=== PATIENT | female | born 1975 | race Caucasian/White ===

== ENCOUNTER 2016-05-21 10:51 | Emergency (ER) | payer BC ==
[2016-05-21 11:09] VITALS: BP 124/71
--- NOTE | 2016-05-21 12:03 | UC ---
FLU HPI - HPI Summary HPI Summary: FEVER, BODYACHES, HEADACHE, SORE THROAT SINCE 05/19/16. - History of Current Complaint Chief Complaint: UCGeneralIllness Stated Complaint: FEVER SORE THROAT HEADACHE CONGESTION Time Seen by Provider: 05/21/16 11:13 Hx Obtained From: Patient Hx Last Menstrual Period: IUD Onset/Duration: Sudden Onset, Lasting Days, Still Present Severity Currently: Moderate Severity Initially: Moderate Pain Intensity: 6 Pain Scale Used: 0-10 Numeric Associated Signs & Symptoms: Positive: F/C, Myalgia, Cough, Sore Throat, Headache Related Hx: Possible Flu/Infectious Exposure - Allergy/Home Medications Allergies/Adverse Reactions: Allergies Allergy/AdvReac Type Severity Reaction Status Date / Time Metronidazole [From Flagyl] Allergy Severe Hives Verified 05/21/16 11:09 Home Medications: Home Medications Dextromethorphan-Phenylephrine [Vicks Dayquil Cold & Flu 10-5-325 mg/15Ml] 30 ml PO Q6HR PRN 05/21/16 [History Confirmed 05/21/16] Ibuprofen [Advil] 800 mg PO Q8HR PRN 05/21/16 [History Confirmed 05/21/16] PMH/Surg Hx/FS Hx/Imm Hx Previously Healthy: Yes - Surgical History Surgical History: Yes Surgery Procedure, Year, and Place: tonsilectomy. R/L knee ACL and meniscal tear. - Family History Known Family History: Negative: Respiratory Disease - Social History Occupation: Employed Full-time Lives: With Family Alcohol Use: Occasionally Substance Use Type: None Smoking Status (MU): Never Smoked Tobacco - Immunization History Most Recent Influenza Vaccination: Not UTD Review of Systems Constitutional: Fever, Chills, Fatigue Skin: Negative Eyes: Negative ENT: Sore Throat Respiratory: Cough Cardiovascular: Negative Gastrointestinal: Negative Genitourinary: Negative Motor: Negative Neurovascular: Negative Musculoskeletal: Myalgia Neurological: Negative Psychological: Negative All Other Systems Reviewed And Are Negative: Yes Physical Exam Triage Information Reviewed: Yes Appearance: Ill-Appearing - MILD Vital Signs: Initial Vital Signs Temp 99.3 F 05/21/16 11:04 Pulse 76 05/21/16 11:04 Resp 18 05/21/16 11:04 BP 124/71 05/21/16 11:04 Pulse Ox 100 05/21/16 11:04 Vital Signs Reviewed: Yes Eye Exam: Normal ENT Exam: Normal ENT: Positive: Normal ENT inspection, Hearing grossly normal, Pharynx normal, TMs normal Dental Exam: Normal Neck exam: Normal Respiratory Exam: Normal Respiratory: Positive: Chest non-tender, Lungs clear, Normal breath sounds, No respiratory distress, No accessory muscle use Cardiovascular Exam: Normal Cardiovascular: Positive: RRR, No Murmur, Pulses Normal Abdominal Exam: Normal Abdomen Description: Positive: Nontender, No Organomegaly Musculoskeletal Exam: Normal Neurological Exam: Normal Psychological Exam: Normal Skin Exam: Normal Flu Course/Dx - Differential Dx/Diagnosis Differential Diagnosis/HQI/PQRI: Influenza, Upper Respiratory Infection Provider Diagnoses: INFLUENZA B Discharge - Discharge Plan Condition: Stable Disposition: HOME Prescriptions: Oseltamivir CAP* [Tamiflu CAP*] 75 mg PO BID #10 cap Patient Education Materials: Influenza (ED) Forms: *Work Release Referrals: Javier Macdonald MD [Primary Care Provider] -
== END 2016-05-21 11:58 | disposition home or self-care (01) ==
LOC: UCCORT 10:51
DX: J11.1 Influenza due to unidentified influenza virus with other respiratory manifestations (principal); Z88.1 Allergy status to other antibiotic agents
CPT/HCPCS: 87502; 99212; G0463

== ENCOUNTER 2016-07-28 18:23 | Emergency (ER) | payer BC ==
[2016-07-28 18:41] VITALS: BP 109/64
--- NOTE | 2016-07-28 18:53 | UC ---
Abdominal Pain Female HPI - HPI Summary HPI Summary: 40 yo female awoke with abd pain about 4 AM pain waxes and wanes at times it doubles her over fever chills nausea and vomiting (x1) anorexic no solids very little liquids a few weeks ago had old IUD removed and new one inserted Uterine sound and insertion were bought very painful no vag d/c or itch no UTI symptoms - History of Current Complaint Chief Complaint: UCGI Stated Complaint: FEVER/STOMACH ACHE/CALDWELL Time Seen by Provider: 07/28/16 18:45 Hx Last Menstrual Period: 07/09/16 Onset/Duration: Gradual Onset, Lasting Hours Timing: Constant Severity Initially: Moderate Severity Currently: Mild Pain Intensity: 4 Pain Scale Used: 0-10 Numeric Location: Suprapubic Radiates: No Character: Colicy, Cramping Aggravating Factor(s): Nothing Alleviating Factor(s): Nothing Associated Signs and Symptoms: Positive: Fever, Decreased Appetite, Nausea, Vomiting - Risk Factors Ectopic Risk Factor: IUD Use Allergies/Adverse Reactions: Allergies Allergy/AdvReac Type Severity Reaction Status Date / Time Metronidazole [From Flagyl] Allergy Severe Hives Verified 07/28/16 18:41 Home Medications: Home Medications Naproxen Sodium-Diphenhydramin [Aleve PM 220-25 mg] 2 tab PO PRN 07/28/16 [ History] PMH/Surg Hx/FS Hx/Imm Hx Previously Healthy: Yes - Surgical History Surgical History: Yes Surgery Procedure, Year, and Place: tonsilectomy. R/L knee ACL and meniscal tear. - Family History Known Family History: Negative: Cardiac Disease, Hypertension, Diabetes, Respiratory Disease - Social History Alcohol Use: Occasionally Substance Use Type: None Smoking Status (MU): Never Smoked Tobacco - Immunization History Most Recent Influenza Vaccination: Not UTD Review of Systems Constitutional: Fever, Chills Skin: Negative Eyes: Negative ENT: Negative Respiratory: Negative Cardiovascular: Negative Gastrointestinal: Abdominal Pain, Vomiting, Nausea Genitourinary: Negative Motor: Negative Neurovascular: Negative Musculoskeletal: Negative Neurological: Negative Psychological: Negative All Other Systems Reviewed And Are Negative: Yes Physical Exam Triage Information Reviewed: Yes Appearance: Well-Appearing, No Pain Distress, Well-Nourished Vital Signs: Initial Vital Signs Temp 100.6 F 07/28/16 18:32 Pulse 88 07/28/16 18:32 Resp 14 07/28/16 18:32 BP 109/64 07/28/16 18:32 Pulse Ox 100 07/28/16 18:32 Eye Exam: Normal ENT: Positive: Hearing grossly normal, Pharynx normal, Pharyngeal erythema Neck: Positive: Supple, Nontender Respiratory: Positive: Lungs clear, Normal breath sounds, No respiratory distress, No accessory muscle use Cardiovascular: Positive: RRR, No Murmur Abdomen Description: Positive: No Organomegaly, Soft. Negative: Nontender, CVA Tenderness (R), CVA Tenderness (L), Distended, Guarding, Hernia @, Hepatomegaly Bowel Sounds: Positive: Present Musculoskeletal: Positive: ROM Intact, No Edema Neurological: Positive: Alert Psychological Exam: Normal Skin Exam: Normal Abd Pain Female Course/Dx - Course Course Of Treatment: ext genitalia-normal. vagina- moderate D/C. cx- IUD string noted, no CMT. uterus-slightly tender. left adenexa tender. d/w Candace Chery MUCK [facility]PERATOR, [facility], pt declines EMS transfer - Differential Dx/Diagnosis Provider Diagnoses: abdominal pain of uncertain cause Discharge - Discharge Plan Condition: Stable Disposition: AGAINST MEDICAL ADVICE Images Front/Back of Body, Lg (Jasper): 1 - tender across lower abd
== END 2016-07-28 19:25 | disposition left against medical advice (07) ==
LOC: UCCORT 18:23
DX: R10.30 Lower abdominal pain, unspecified (principal); R50.9 Fever, unspecified; R11.2 Nausea with vomiting, unspecified; Z88.1 Allergy status to other antibiotic agents; Z32.02 Encounter for pregnancy test, result negative
CPT/HCPCS: 81003; 84702; 87480; 87491; 87510; 87591; 87661; 99213; G0463

== ENCOUNTER 2017-12-15 07:47 | Day surgery (SDC) | payer BC ==
[~2017-12-15 07:47] MED LIST: Buffered Lidocaine 0.9% SYRIN* 5 ML/SYR SYRINGE INTRADERM ONE; Dexamethasone TAB* 4 MG PO ONE; Famotidine IV* 10 MG/ML 2 ML (20 mg) IV ONE
[2017-12-15] MEDS ORDERED: Dexamethasone TAB* 4 MG ONE (08:07)
[2017-12-15] MEDS ORDERED: Famotidine IV* 10 MG/ML 2 ML (20 mg) ONE (08:07)
[2017-12-15] MEDS ORDERED: fentaNYL* 50 MCG/ML 2 ML VIAL (100 MCG VIAL) ONE (08:38)
[2017-12-15] MEDS ORDERED: Bupivacaine 0.25% SDV* 30 ML ONE (09:05)
[2017-12-15] MEDS ORDERED: Naloxone* 0.4 MG/ML 1 ML VIAL IV PRN (09:14)
[2017-12-15] MEDS ORDERED: Lidocaine 2% PF * 5 ML VIAL ONE (09:20)
[2017-12-15] MEDS ORDERED: Propofol* 10 MG/ML 20 ML BTL IV PUSH ONE (09:20)
[2017-12-15 10:05] VITALS: BP 119/66
--- NOTE | 2017-12-16 03:33 | OP ---
DATE OF OPERATION: 12/15/17 - [facility] DATE OF : 71 SURGEON: Stephan Bobby MD OCCUPATIONAL HEALTH COORDINATOR: OLIMPIA Fuentes ANESTHESIOLOGIST: Dr. Hoffman. ANESTHESIA: Local MAC. PRE-OP DIAGNOSIS: Right palm mass. POST-OP DIAGNOSIS: Right palm mass. OPERATIVE PROCEDURE: Excision of right palm soft tissue mass. INDICATIONS: Glenda is 42. She has a mass in line with the 4th ray in the palm. Near the distal palmar crease. We had talked about risks and benefits. It is bothering her. She wanted it excised. ESTIMATED BLOOD LOSS: 2 mL. COMPLICATIONS: None. FINDINGS: See above and below. DESCRIPTION OF PROCEDURE: Glenda was seen in the preoperative holding area. The correct site, side, and procedure were identified. We came back to the operating room and the arm was prepped and draped in the usual fashion. A time- out was performed. The arm was exsanguinated with the Esmarch and the tourniquet inflated to 250 mmHg. I had already anesthetized the operative area with 0.25% Marcaine. I made a V-shaped incision centered over the mass. Dissection carried down and full thickness flaps were raised off of the mass. The mass was emanating just off the proximal aspect of the A1 sussy. There was a large nodule. This was excised with a [place] blade and sent as a specimen. I then released the A1 sussy to try to minimize any chance of the mass recurring. Once everything was nice and clean we irrigated out the wound. The skin was closed with 4-0 nylon suture. A soft dressing was applied and she was taken to the recovery room in stable condition. [id number]/[facility] #: [id number] [facility]
== END 2017-12-15 10:01 | disposition home or self-care (01) ==
LOC: OREAST 07:47
PROVIDERS: ATTEND Orthopaedic Surgery Hand Surgery
DX: M67.441 Ganglion, right hand (principal); M19.90 Unspecified osteoarthritis, unspecified site; J30.89 Other allergic rhinitis
CPT/HCPCS: 81025; 88304; J2704; J3010; J8540

== ENCOUNTER 2018-03-15 15:27 | Emergency (ER) | payer BC ==
--- OUTSIDE RECORDS SUMMARY | 2018-03-15 16:52 | XMS REPORT | Continuity of Care Document ---
:1975 External Reference #:[id number] Author Name Antionette Sterling Care Team Providers Name Role Phone Javier Macdonald MD Primary Care Physician Unavailable Payers Type Date Identification Numbers Payment Provider Subscriber Effective: 2017 Policy Number: [id number] BS Kevin Bach PayID: [id number] [address] [address] [place] [address] Advance Directives Description No Information Available Problems Date Description Provider Status Onset: 12/28/2017 Ganglion of hand Stephan Bobby MD Active Family History Date Family Member(s) Problem(s) Comments General Breast Cancer Father No Current Problems Mother Breast Cancer Social History Type Date Description Comments Sex Unknown Marital Status Lives With Family Occupation Teacher Tobacco Use Start: Unknown Never Smoked Cigarettes Smoking Status Reviewed: 02/23/18 Never Smoked Cigarettes ETOH Use Drinks 1 Alcoholic Beverage Per Week Tobacco Use Start: Unknown Patient has never smoked Recreational Drug Use Denies Drug Use Exercise Type/Frequency Exercises regularly Allergies, Adverse Reactions, Alerts Date Description Reaction Status Severity Comments 08/22/2017 Flagyl Urticaria Active Medications Medication Date Status Form Strength Qnty SIG Indications Ordering Provider Aleve 0 Active Capsules 220mg 1-2 by Unknown 000 mouth twice a day as needed Tramadol HCL Hx Tablets 50mg 30tabs 1-2 Stephan 018 - tablets by MD Kanu mouth 019 every 6 hours as needed pain Medications Administered in Office Medication Date Status Form Strength Qnty SIG Indications Ordering Provider Triamcinolone Injection Bryanna (Kenalog) 2018 JOVITA Styles Immunizations Description No Information Available Vital Signs Date Vital Result Comment 02/23/2018 2:43pm Height 62 inches 5'2" Weight 135.00 lb Heart Rate 76 /min Pain Level 3 O2 % BldC Oximetry 97 % BMI (Body Mass Index) 24.7 kg/m2 02/13/2018 10:12am Height 62 inches 5'2" Weight 140.00 lb Heart Rate 64 /min BP Systolic Sitting 112 mmHg L BP Diastolic Sitting 68 mmHg L Respiratory Rate 12 /min Pain Level 2 BMI (Body Mass Index) 25.6 kg/m2 12/28/2017 8:51am Height 62 inches 5'2" Heart Rate 62 /min BP Systolic Sitting 102 mmHg BP Diastolic Sitting 74 mmHg Body Temperature 97.4 F Pain Level 1 O2 % BldC Oximetry 99 % 11/25/2017 10:47am Height 62 inches 5'2" Weight 138.00 lb BP Systolic Sitting 108 mmHg BP Diastolic Sitting 72 mmHg Respiratory Rate 16 /min Body Temperature 99.0 F Pain Level 0 only hurts with pressure. BMI (Body Mass Index) 25.2 kg/m2 09/23/2017 8:30am Height 62 inches 5'2" Weight 138.00 lb Heart Rate 54 /min BP Systolic Sitting 110 mmHg BP Diastolic Sitting 60 mmHg Respiratory Rate 12 /min Pain Level 3 BMI (Body Mass Index) 25.2 kg/m2 08/22/2017 2:49pm Height 62 inches 5'2" Weight 140.00 lb Heart Rate 76 /min BP Systolic Sitting 116 mmHg BP Diastolic Sitting 74 mmHg Respiratory Rate 12 /min Pain Level 4 BMI (Body Mass Index) 25.6 kg/m2 Results Test Date Facility Test Result H/L Range Note Laboratory test 12/15/2017 [facility] Surgical SEE RESULT 1 , [address] Pathology BELOW [place], [place] [id number] [phone] Xray 09/15/2017 [facility] MRI Upper <pending > [address] [place] [address] [phone] 1 [id number] 2 SEE RESULT BELOW Name: GLENDA BACH : [address]: Stephan Bobby MD Acct: [id number] Unit: [id number] AGE: 42 Location: [facility] Re12/15/17 SEX: F Status: DEP CYNDYC SPEC: [id number] LIAM: 12/15/[address]: Stephan Bobby MD REQ: [id number] RECD: 12/15/17 STATUS: SOUT _ ORDERED: LEVEL 3 COMMENTS: [id number] FINAL DIAGNOSIS Right fourth finger, excision: -- Ganglion cyst. PRE-OPERATIVE DIAGNOSIS Right hand mass GROSS DESCRIPTION The specimen is received in formalin labeled, Right Fourth Finger Tendon Sheath Mass, and consists of a 0.7 x 0.7 x 0.4 cm adhikari-white ovoid rubbery fibrous tissue fragment which is inked, bisected and submitted entirely in one cassette. Signed by and Reported on: Nara Stern MD 12/16/17 1334 END OF REPORT DEPARTMENT OF PATHOLOGY, [address] [place] [address] Kris Hernandez M.D. Director [facility] # [id number] Procedures Date Code Description Status 02/13/2018 89039 Rad Shoulder Comp, Min. 2 Views Completed 12/15/2017 66660 Excision Tendon Sheath Ganglion /Or Joint Capsule Hand Or Completed Finger 12/15/2017 35571 Excision Tendon Sheath Ganglion /Or Joint Capsule Hand Or Completed Finger 08/22/2017 66451 Rad Exam; Hand Comp Completed Encounters Type Date Location Provider Dx Diagnosis Office Visit 02/13/2018 [facility] Scott Fox, M25.311 Other 10:15a [facility] [place] [facility] right shoulder M25.511 Pain in right shoulder Office Visit 09/23/2017 8:30a Orthopedic Stephan R22.31 Local[facility] Bobby MD swelling, mass AT [place] and lump, right upper limb M67.441 Ganglion, right hand Office Visit 08/22/2017 2:45p Orthopedic Scott Fox, D36.12 Mg frazier of [facility] [facility] n[facility] & [place] [facility], upr lmb[facility] inc shldr M79.641 Pain in right hand Plan of Treatment Future Appointment(s):03/23/2018 8:15 am - Jayson Salazar MD at [facility]
[2018-03-15 16:56] VITALS: BP 129/74
[2018-03-15] MEDS ORDERED: Ketorolac INJ* 60 MG/2 ML VIAL IM ONE (17:24)
[2018-03-15] MEDS ORDERED: Acetaminophen TAB* 325 MG PO ONE (17:26)
[2018-03-15] MEDS ORDERED: Ondansetron ODT TAB* 4 MG PO ONE (17:26)
--- NOTE | 2018-03-15 17:27 | UC ---
Headache HPI - HPI Summary HPI Summary: 42-year-old woman comes in with a chief complaint of a headache. Started 2 weeks ago the left mandaeism. Does radiate into the left ear. It's pulsating throbbing. She does have some photophobia and also phonophobia. Patient is a history of migraines and she reports this is the typical location for her migraines and a typical character. Headache is moderate sometimes he gets severe. Was different is the duration of headache. Usually her headache starts beginning her period the last day or 2 at the most. She does have an IUD her last period was in July 2018. No fevers or chills no rhinorrhea. No change in vision or difficulty with speech weakness or numbness or any focal neurologic deficit. The pain does occasionally wake her up in the middle the night which is also typical of her typical migraines. - History Of Current Complaint Chief Complaint: UCHeadache Stated Complaint: HEADACHE Time Seen by Provider: 03/15/18 16:51 Hx Last Menstrual Period: IUD Pain Intensity: 6 - Allergies/Home Medications Allergies/Adverse Reactions: Allergies Allergy/AdvReac Type Severity Reaction Status Date / Time metronidazole [From Flagyl] Allergy Hives Verified 03/15/18 16:53 Home Medications: Home Medications Acetaminophen [Pain Relief] 1,000 mg PO DAILY 03/15/18 [History Confirmed ] Aspirin/Acetaminophen/Caffeine [Excedrin Migraine Geltab] 1 each PO ONCE [History Confirmed 03/15/18] PMH/Surg Hx/FS Hx/Imm Hx Previously Healthy: Yes Neurological History: Migraine - Surgical History Surgical History: Yes Surgery Procedure, Year, and Place: TONSILLECTOMY 1983 [place]. BILATERAL KNEE SCOPINGS (MENISCAL TEAR) 2010, 2011 [place]. Rt HAND - 12/25 - CYST REMOVED - Family History Known Family History: Negative: Cardiac Disease, Hypertension, Diabetes, Respiratory Disease - Social History Alcohol Use: Rare Alcohol Amount: 1 DRINK/MONTH Substance Use Type: None Smoking Status (MU): Never Smoked Tobacco Have You Smoked in the Last Year: No - Immunization History Most Recent Influenza Vaccination: Not UTD Review of Systems All Other Systems Reviewed And Are Negative: Yes Constitutional: Positive: Negative Skin: Positive: Negative Eyes: Positive: Photophobia ENT: Positive: Ear Ache - left, Other - phonophobia Respiratory: Positive: Negative Cardiovascular: Positive: Negative Gastrointestinal: Positive: Negative. Negative: Nausea Motor: Positive: Negative Neurovascular: Positive: Negative Musculoskeletal: Positive: Negative Neurological: Positive: Headache Psychological: Positive: Negative Is Patient Immunocompromised?: No Physical Exam Triage Information Reviewed: Yes Appearance: Well-Appearing, Well-Nourished, Pain Distress - mild Vital Signs: Initial Vital Signs Temp 98.4 F 03/15/18 16:51 Pulse 65 03/15/18 16:51 Resp 16 03/15/18 16:51 BP 129/74 03/15/18 16:51 Pulse Ox 100 03/15/18 16:51 Vital Signs Reviewed: Yes Eyes: Positive: Conjunctiva Clear, Other: - mild photophobia perrla/eomi ENT: Positive: TMs normal Neck exam: Normal Neck: Positive: Supple Respiratory: Positive: Lungs clear, Normal breath sounds, No respiratory distress Cardiovascular: Positive: RRR Musculoskeletal Exam: Normal Musculoskeletal: Positive: Strength Intact, ROM Intact Neurological Exam: Normal Neurological: Positive: Alert, Muscle Tone Normal Psychological Exam: Normal Psychological: Positive: Age Appropriate Behavior Skin Exam: Normal Headache Course/Dx - Course Course Of Treatment: We discussed CT imaging for her headache. Patient has no visual changes of the photophobia no difficulty with speech weakness numbness or any neurologic deficit. The headache does wake her up at night however she reports this is part of her typical headaches. The rest of the character of the headaches is typical of her migraine. Patient declined head CT at this time. In clinic patient received Toradol 60 mg IM acetaminophen 975 mg by mouth and Zofran 4 mg by mouth. The overall plan is to go home and rest and take Benadryl if needed and can 10 units with Zofran if needed and also wrote a prescription for Fioricet. If the headache does not improve or worsen or she has any neurologic symptoms she is go the emergency department. Overall plan is to follow-up with neurology also has she's suffered from these headaches for years. - Differential Dx/Diagnosis Provider Diagnosis: Headache Discharge - Sign-Out/Discharge Documenting (check all that apply): Patient Departure All imaging exams completed and their final reports reviewed: No Studies - Discharge Plan Condition: Stable Disposition: HOME Prescriptions: Butalb/Acetamin/Caff TAB* [Fioricet TAB*] 1 tab PO Q4H PRN #20 tab MDD 6 PRN Reason: Headache Ondansetron ODT TAB* [Zofran 4 MG Odt TAB*] 4 mg PO Q6H PRN #10 tab.odt PRN Reason: Headache Patient Education Materials: Acute Headache (ED) Referrals: Javier Macdonald MD [Primary Care Provider] - Nicola Yee MD [Medical Doctor] - Additional Instructions: FOLLOW UP WITH YOUR PRIMARY CARE DOCTOR AND NEUROLOGY. YOU CAN ALSO TRY BENADRYL 50MG EVERY 6 HOURS NEEDED IF HELPFUL. GO TO THE EMERGENCY DEPARTMENT FOR ANY WORSENING OF YOUR CONDITION; PAIN, WEAKNESS, NUMBNESS, DIFFICULTY WITH VISION OR SPEECH, FEVER OR QUESTIONS OR CONCERNS. - Billing Disposition and Condition Condition: STABLE Disposition: Home
== END 2018-03-15 17:48 | disposition home or self-care (01) ==
LOC: UCCORT 15:27
DX: R51 Headache (principal); H92.02 Otalgia, left ear; H53.149 Visual discomfort, unspecified; F40.298 Other specified phobia; Z97.5 Presence of (intrauterine) contraceptive device; Z88.1 Allergy status to other antibiotic agents; Z79.82 Long term (current) use of aspirin
CPT/HCPCS: 96372; 99212; A9270-GY; G0463; J1885

== ENCOUNTER 2018-06-18 19:22 | Emergency (ER) | payer BC ==
[2018-06-18 19:49] VITALS: BP 127/73
--- NOTE | 2018-06-18 19:54 | UC ---
UC General HPI - HPI Summary HPI Summary: Left 5TH TOE PAIN AFTER BEING STEPPED ON THIS AM. - History of Current Complaint Stated Complaint: FOOT PAIN Time Seen by Provider: 06/18/18 19:40 Hx Obtained From: Patient Hx Last Menstrual Period: IUD Onset/Duration: Sudden Onset Timing: Constant Aggravating: movement Associated Signs & Symptoms: Positive: Other - toe bruised and swollen. Negative: Fever - Allergy/Home Medications Allergies/Adverse Reactions: Allergies Allergy/AdvReac Type Severity Reaction Status Date / Time metronidazole [From Flagyl] Allergy Hives Verified 06/18/18 19:41 Home Medications: Home Medications SUMAtriptan TAB* [Imitrex TAB*] 25 mg PO SEE INSTRUCTIONS PRN 06/18/18 [History Confirmed 06/18/18] Topiramate [Topamax] 25 mg PO BEDTIME 06/18/18 [History Confirmed 06/18/18] PMH/Surg Hx/FS Hx/Imm Hx Neurological History: Migraine - Surgical History Surgical History: Yes Surgery Procedure, Year, and Place: TONSILLECTOMY 1983 [place]. BILATERAL KNEE SCOPINGS (MENISCAL TEAR) 2010, 2011 [place]. Rt HAND - 12/25 - CYST REMOVED - Family History Known Family History: Negative: Cardiac Disease, Hypertension, Diabetes, Respiratory Disease - Social History Lives: With Family Alcohol Use: Rare Alcohol Amount: 1 DRINK/MONTH Substance Use Type: None Smoking Status (MU): Never Smoked Tobacco Have You Smoked in the Last Year: No - Immunization History Most Recent Influenza Vaccination: Not UTD Review of Systems All Other Systems Reviewed And Are Negative: No Constitutional: Negative: Fever Musculoskeletal: Positive: Decreased ROM - l 5th toe, Edema - l 5th toe Neurological: Negative: Numbness Physical Exam Triage Information Reviewed: Yes Appearance: Well-Appearing Vital Signs Reviewed: Yes Eyes: Positive: Conjunctiva Clear Respiratory: Positive: No respiratory distress Cardiovascular: Positive: RRR Musculoskeletal: Positive: Other: - L foot: 5th toe and adjacent fott with swelling, brusing and tenderness. rest of foot unremarkable. Neurological: Positive: Alert Psychological: Positive: Age Appropriate Behavior Skin Exam: Normal Diagnostics - Radiology No standard instances Radiology Interpretation Completed By: ED Physician - L 5th toe, no fx Course/Dx - Course Course Of Treatment: Repeat 5th toe exam post xray, proximal medial ligament with laxity. PROCEDURE BY THIS PROVIDER:Gauze placed between 4ht/5th toes then 4/5th toes donya taped. gross s/v intact after. - Differential Dx - Multi-Symptom Differential Diagnoses: Other - no fx or dislocation. no concern for infection. - Diagnoses Provider Diagnosis: Sprain of fifth toe, left, Contusion of fifth toe, left Discharge - Sign-Out/Discharge Documenting (check all that apply): Patient Departure All imaging exams completed and their final reports reviewed: No - Discharge Plan Condition: Stable Disposition: HOME Patient Education Materials: Sprain (ED), Foot Contusion (ED) Referrals: Scott Fox MD [Medical Doctor] - 5 Days Additional Instructions: donya tape 4/5th toes with gauze between those toes - Billing Disposition and Condition Condition: STABLE Disposition: Home
--- NOTE | 2018-06-19 08:15 | UC ---
- EKG/XRAY/CT Xray Comments: wet read correct Course/Dx - Diagnoses Provider Diagnoses: Sprain of fifth toe, left, Contusion of fifth toe, left Discharge - Sign-Out/Discharge Documenting (check all that apply): Post-Discharge Follow Up All imaging exams completed and their final reports reviewed: Yes - Discharge Plan Condition: Stable Disposition: HOME Patient Education Materials: Sprain (ED), Foot Contusion (ED) Referrals: Scott Fox MD [Medical Doctor] - 5 Days Additional Instructions: donya tape 4/5th toes with gauze between those toes - Billing Disposition and Condition Condition: STABLE Disposition: Home
== END 2018-06-18 20:33 | disposition home or self-care (01) ==
LOC: UCCORT 19:22
DX: S93.505A Unspecified sprain of left lesser toe(s), initial encounter (principal); S90.122A Contusion of left lesser toe(s) without damage to nail, initial encounter; W50.0XXA Accidental hit or strike by another person, initial encounter; Y93.01 Activity, walking, marching and hiking; Y92.89 Other specified places as the place of occurrence of the external cause; G43.909 Migraine, unspecified, not intractable, without status migrainosus; Z88.8 Allergy status to other drugs, medicaments and biological substances
CPT/HCPCS: 99211; G0463